=== PATIENT | female | born 1980 | race Caucasian/White ===

== ENCOUNTER 2022-04-16 02:55 | Emergency (ER) | payer OTHER ==
[~2022-04-16] VITALS: Ht 160 cm; Wt 64.2 kg
[2022-04-16 03:04] VITALS: BP 122/69
--- NOTE | 2022-04-16 03:12 | NUR ---
PT TO RR FOR URINE COLLECTION.
--- NOTE | 2022-04-16 03:15 | NUR ---
PT TO BED 9
--- NOTE | 2022-04-16 03:23 | NUR ---
Dr. Sanchez made aware of pt reports of pain and nausea. pending orders at this time
--- NOTE | 2022-04-16 03:24 | NUR ---
received pt from intake and placed to bed 09. pt currently a/o x4, gcs 15. able to move all extremities freely. pt is a 41 year old female with hx of GERD, hypothyroid and gastric sleeve coming from home for cc of upper abdominal pain x 2-3 hours with 3 episodes vomiting. no hematemesis at this time. pt reports possible diarrhea with no hematochezia at this time.
[2022-04-16 03:34] LABS: APPEARANCE,URINE CLEAR (CLEAR); BILIRUBIN,URINE 1+ (NEGATIVE); BLOOD, URINE NEGATIVE (NEGATIVE); COLOR,URINE YELLOW (YELLOW); LEUKOCYTE ESTERASE ,URINE NEGATIVE (NEGATIVE); NITRITE, URINE NEGATIVE (NEGATIVE); UGLUCOSE NEGATIVE (NEGATIVE)
[2022-04-16 03:40] LABS: BASOPHILS # (AUTO) 0.1 K/uL (0.00-0.22); BASOPHILS % (AUTO) 0.8 % (0.0-2.0); EOSINOPHILS # (AUTO) 0.1 K/uL (0-0.4); HEMATOCRIT 40.2 % (36-48); LYMPHOCYTES # (AUTO) 2.1 K/uL (2.5-16.5); LYMPHOCYTES % (AUTO) 27.5 % (20.5-51.1); MEAN CORPUSCULAR HEMOGLOBIN 28 pg (27-31); MEAN CORPUSCULAR HGB CONC 32 g/dL (33-37); MEAN CORPUSCULAR VOLUME 85.3 fL (80-94); MONOCYTES # (AUTO) 0.5 K/uL (0.8-1.0); MONOCYTES % (AUTO) 6.4 % (1.7-9.3); NEUTROPHILS # (AUTO) 4.8 K/uL (1.8-7.7); NEUTROPHILS % (AUTO) 64.3 % (42.2-75.2); PLATELET COUNT (AUTO) 253 K/uL (140-450); RED BLOOD CELL COUNT(AUTO) 4.71 MIL/uL (4.20-5.40); WHITE BLOOD COUNT (AUTO) 7.5 K/uL (4.8-10.8)
[2022-04-16 04:00] LABS: ALBUMIN 3.8 g/dL (3.4-5.0); ANION GAP 13.9 (8-16); CREATININE 0.8 mg/dL (0.6-1.3); POTASSIUM 3.9 mmol/L (3.5-5.1)
[2022-04-16] MEDS ORDERED: METOCLOPRAMIDE 10 MG/2 ML INJ VIAL IVP ONE (04:10)
[2022-04-16] MEDS ORDERED: MORPHINE SULFATE 4 MG/ML SYR IVP ONE (04:10)
[2022-04-16] MEDS ORDERED: FAMOTIDINE 20 MG/2 ML VIAL IVP ONE (04:25)
[2022-04-16] MEDS ORDERED: NACL 0.9% 1,000 ML IV ONE (04:25)
--- NOTE | 2022-04-16 07:20 | NUR ---
Assumed care from CARLOS Agee.
--- NOTE | 2022-04-16 08:00 | NUR ---
Pt resting in bed. AOX4, able to make needs known. Denies any pain N/V/D. All safety measures in place. Pt given update on care. Resp even and unlabored on RA.
--- NOTE | 2022-04-16 08:20 | NUR ---
Dr Judge at bedside to consult with pt
[2022-04-16] MEDS ORDERED: ONDA-188 PO (08:39)
[2022-04-16] MEDS ORDERED: BEN10 PO (08:39)
[2022-04-16] MEDS ORDERED: ACET-10509 PO (08:39)
[2022-04-16 08:49] VITALS: BP 122/69
--- NOTE | 2022-04-16 08:49 | NUR ---
Patient discharged with v/s stable. Written and verbal after care instructions given and explained. Patient alert, oriented and verbalized understanding of instructions. Ambulatory with steady gait. All questions addressed prior to discharge. ID band removed. Patient advised to follow up with PMD. Rx of acetaminophen, ondansetron, dicyclomine (sent) given. Patient educated on indication of medication including possible reaction and side effects. Opportunity to ask questions provided and answered. labs and imaging given
== END 2022-04-16 08:49 | disposition home or self-care (01) ==
LOC: MED 02:55
DX: K21.9 Gastro-esophageal reflux disease without esophagitis (principal); E03.9 Hypothyroidism, unspecified
CPT/HCPCS: 36415; 74177; 80053; 81003; 81025; 82150; 83690; 85025; 96361; 96374; 96375; 99285; J2270; J2765; J3490; Q9967; J7030

== ENCOUNTER 2022-10-18 06:58 | Day surgery (SDC) | payer OTHER ==
[~2022-10-18] VITALS: Ht 160 cm; Wt 56.0 kg
[~2022-10-18 06:58] MED LIST: ACET-10509 PO; BEN10 PO; ONDA-188 PO
[2022-10-18] MEDS ORDERED: fentaNYL citrate 0.05 MG/ML VIAL ONE (08:14)
[2022-10-18] MEDS ORDERED: diphenhydrAMINE 50 MG/ML VIAL ONE (08:14)
[2022-10-18] MEDS ORDERED: MIDAZOLAM 5 MG/5 ML VIAL ONE (08:14)
[2022-10-18] MEDS ORDERED: MIDAZOLAM 5 MG/5 ML VIAL IV ONE (14:00)
[2022-10-18] MEDS ORDERED: diphenhydrAMINE 50 MG/ML VIAL IVP ONE (14:00)
[2022-10-18] MEDS ORDERED: fentaNYL citrate 0.05 MG/ML VIAL IVP ONE (14:00)
== END 2022-10-18 09:56 | disposition home or self-care (01) ==
LOC: MMU 06:58 → MDS 06:58
PROVIDERS: ATTEND Internal Medicine Gastroenterology
DX: R11.0 Nausea (principal); K29.50 Unspecified chronic gastritis without bleeding; K91.89 Other postprocedural complications and disorders of digestive system; E03.9 Hypothyroidism, unspecified; K21.9 Gastro-esophageal reflux disease without esophagitis; F17.210 Nicotine dependence, cigarettes, uncomplicated; Z90.49 Acquired absence of other specified parts of digestive tract; Z98.84 Bariatric surgery status; Z80.0 Family history of malignant neoplasm of digestive organs; Z20.822 Contact with and (suspected) exposure to COVID-19
CPT/HCPCS: 43239; 87426; J1200; J2250; J3010; 88305; 88312; 88313; 88342